=== PATIENT | female | born 1960 | race Native Hawaiian/Other Pacific Islander ===

== ENCOUNTER 2016-12-31 10:42 | Outpatient (CLI) | payer BC | END 2016-12-31 19:31 | disposition home or self-care (01) | LOC: RAD 10:42 | DX: M25.562 Pain in left knee (principal) ==

== ENCOUNTER 2019-11-08 11:58 | Outpatient (CLI) | payer OTHER ==
[2019-11-08 12:54] LABS: PLATELET COUNT 334 K/uL (152-353)
[2019-11-08 13:10] LABS: POTASSIUM 3.4 mmol/L (3.6-5.2)
== END 2019-11-08 20:38 | disposition home or self-care (01) ==
LOC: LABW 11:58
PROVIDERS: Internal Medicine
DX: I10 Essential (primary) hypertension (principal)
CPT/HCPCS: 36415; 80053; 81000; 82024; 82043; 82088; 82533; 82570; 83835; 84155; 84244; 84436; 84443; 85027

== ENCOUNTER 2020-03-01 08:33 | Outpatient (CLI) | payer OTHER ==
[2020-03-01 09:06] LABS: POTASSIUM 3.7 mmol/L (3.6-5.2)
[2020-03-01 09:50] LABS: PLATELET COUNT 298 K/uL (152-353)
== END 2020-03-01 22:51 | disposition home or self-care (01) ==
LOC: LABW 08:33
PROVIDERS: Nurse Practitioner
DX: I10 Essential (primary) hypertension (principal)
CPT/HCPCS: 36415; 80053; 81000; 82570; 83735; 84100; 84155; 85027

== ENCOUNTER 2021-02-21 09:18 | Outpatient (CLI) | payer BC ==
[2021-02-21 09:46] LABS: PLATELET COUNT 311 K/uL (152-353)
[2021-02-21 10:12] LABS: POTASSIUM 3.3 mmol/L (3.6-5.2)
== END 2021-02-21 19:43 | disposition home or self-care (01) ==
LOC: LABW 09:18
PROVIDERS: ATTEND Internal Medicine
DX: I10 Essential (primary) hypertension (principal)
CPT/HCPCS: 36415; 80053; 81000; 82570; 83735; 84100; 84155; 85027

== ENCOUNTER 2021-09-02 10:02 | Outpatient (CLI) | payer BC ==
[2021-09-02 11:19] LABS: PLATELET COUNT 328 K/uL (152-353)
[2021-09-02 12:54] LABS: POTASSIUM 3.5 mmol/L (3.6-5.2)
== END 2021-09-02 20:23 | disposition home or self-care (01) ==
LOC: LABW 10:02
PROVIDERS: ATTEND Internal Medicine
DX: I10 Essential (primary) hypertension (principal); R53.83 Other fatigue
CPT/HCPCS: 36415; 80053; 81000; 82306; 82570; 82607; 82728; 82746; 83036; 83540; 83550; 83735; 84100; 84155; 84439; 84443; 85027; 85652; 86038

== ENCOUNTER 2021-10-10 10:02 | Outpatient (CLI) | payer BC | END 2021-10-10 19:52 | disposition home or self-care (01) | LOC: LABW 10:02 | PROVIDERS: ATTEND Internal Medicine | DX: R53.83 Other fatigue (principal) | CPT/HCPCS: 36415; 84439; 84443 ==

== ENCOUNTER 2022-01-07 10:16 | Outpatient (CLI) | payer BC ==
[2022-01-07 11:03] LABS: PLATELET COUNT 296 K/uL (152-353)
[2022-01-07 11:24] LABS: POTASSIUM 3.6 mmol/L (3.6-5.2)
== END 2022-01-07 19:28 | disposition home or self-care (01) ==
LOC: LABW 10:16
PROVIDERS: ATTEND Internal Medicine
DX: I10 Essential (primary) hypertension (principal); R53.83 Other fatigue; E53.8 Deficiency of other specified B group vitamins; E03.9 Hypothyroidism, unspecified
CPT/HCPCS: 36415; 80053; 82306; 82607; 82728; 82746; 83036; 83540; 83550; 84439; 84443; 85027; 85652; 86038

== ENCOUNTER 2022-06-27 10:27 | Outpatient (CLI) | payer BC ==
[2022-06-27 11:14] LABS: PLATELET COUNT 353 K/uL (152-353)
[2022-06-27 11:30] LABS: POTASSIUM 3.4 mmol/L (3.6-5.2)
== END 2022-06-27 20:30 | disposition home or self-care (01) ==
LOC: LABW 10:27
PROVIDERS: ATTEND Internal Medicine
DX: I10 Essential (primary) hypertension (principal); R53.83 Other fatigue; E03.8 Other specified hypothyroidism
CPT/HCPCS: 36415; 80053; 82306; 82607; 82728; 82746; 83036; 83540; 83550; 84439; 84443; 85027; 85652; 86038

== ENCOUNTER 2022-09-22 09:51 | Outpatient (CLI) | payer BC ==
[2022-09-22 10:30] LABS: PLATELET COUNT 323 K/uL (152-353)
[2022-09-22 10:47] LABS: POTASSIUM 3.3 mmol/L (3.6-5.2)
== END 2022-09-22 20:18 | disposition home or self-care (01) ==
LOC: LABW 09:51
PROVIDERS: ATTEND Internal Medicine
DX: R53.83 Other fatigue (principal); E03.8 Other specified hypothyroidism; N18.2 Chronic kidney disease, stage 2 (mild)
CPT/HCPCS: 36415; 80053; 81002; 82043; 82306; 82330; 82550; 82570; 82607; 82728; 82746; 83036; 83540; 83550; 83735; 83970; 84100; 84156; 84439; 84443; 84550; 85027; 85652; 86038